=== PATIENT | male | born 1955 | race Caucasian/White ===

== ENCOUNTER 2020-10-18 07:16 | Emergency (ER) | payer SELFPAY ==
[2020-10-18 07:25] VITALS: BP 97/79; PULSE 112; RESP 14; TEMP 36.4; O2SAT 99; BMI 27.3
--- NOTE | 2020-10-18 07:39 | XR_ITS ---
WS: [id number] Exam: XR KUB portable [id number] Date/Time of Exam: 10/18/2020 7:55 AM Reason For Exam: n/v No bowel obstruction or free air. Visualized organ margins are unremarkable. Moderate amount stool in the left colon. Degenerative changes of the L-spine and hips. XR/XR KUB portable [id number] IMPRESSION: 1. No acute abdominal finding.
--- NOTE | 2020-10-18 07:39 | XR_ITS ---
WS: [id number] Exam: XR chest 1V portable [id number] Date/Time of Exam: 10/18/2020 7:55 AM Reason For Exam: n/v No priors. Findings: The lungs are clear and fully expanded. Costophrenic angles are sharp. No infiltrates. Bronchovascula r relief appears normal. Cardiac silhouette is unremarkable. Bony elements are intact. XR/XR chest 1V portable [id number] IMPRESSION: Unremarkable chest radiograph.
--- NOTE | 2020-10-18 07:45 | ECG_ITS ---
[facility] Test Date: 2020-10-18 Pat Name: Eric Mckinney Department: Room: Gender: Male Laboratory Chief: : 1955 Requested By: Rossy Dill Order Number: [id number] Jerald MD: Tiffanie Osuna M.D. Measurements Intervals [place] Rate: 108 P: 28 [place]: 115 QRS: 1 QRSD: 96 T: 33 QT: 323 QTc: 433 Interpretive Statements SINUS TACHYCARDIA WITH SHORT [place] INTERVAL ABNORMAL RHYTHM ECG No previous ECG available for comparison Electronically Signed On 10-18-2020 21:24:41 SCOOP OPERATOR by Tiffanie Osuna M.D. [id number]
[2020-10-18 07:50] LABS: Glucose Point of Care > 600 mg/dL (70-110)
--- NOTE | 2020-10-18 07:51 | W.ED.NAVMDI ---
HPI - Nausea/Vomiting/Diarrhea General: Chief complaint: Nausea/Vomiting/Diarrhea Stated complaint: constipation, nausea, vomiting. Time Seen by Provider: 10/18/20 07:39 Source: patient Mode of arrival: ambulatory Limitations: no limitations History of Present Illness: HPI Narrative: 65-year-old male patient presents to the emergency department with 1 month history of not feeling well. He reports exposed to his brother who had been ill with flulike symptoms earlier this month. He reports became ill several days after exposure to his brother around September 19, 2020. States his brother was tested on several occasions for Covid and was negative. He reports fatigue and symptoms have progressed past 3 to 4 weeks. Reports 4-day onset of vomiting, started with solid food intake. Past 24 hours not able to keep down water due to vomiting. He denies abdominal pain, chest pain, shortness of breath fever. States history of blood sugar readings greater than 600 approximately 2 years ago, states changed his diet, did not follow-up with a primary care provider, states blood sugars improved yet reports he was not able to check his blood sugars at home. He reports symptoms he experienced today are similar when blood sugar reading of 600 approximately 2 years ago. Last bowel movement this morning, was small. He reports constipation past several days. He reports EtOH intake, approximately 6 pack of beer several times weeklY. MD elicited complaint: nausea and vomiting Pertinent past history: anorexia Onset (ago): day(s) (4) Description of vomiting: watery Associated nausea: Yes Associated abdominal pain: No Exacerbating factors: other (EATING) Associated symtoms: Reports fatigue, anorexia, malaise, nausea and weakness; Denies anxiety, bloating, change in vision, chest pain, dizziness, dysuria, headache(s) or palpitations Review of Systems General: Reports: 10 or more systems reviewed and unremarkable except in HPI and below Const: Reports: chills, change in appetite, fatigue and malaise Eyes: Reports: blurry vision; Denies: change in vision, eye discomfort or eye redness ENMT: Reports: other; Denies: throat pain, uvular edema, oral sores, dental pain, disequilibrium, nasal discharge or nasal congestion Card: Denies: chest pain, palpitations, irregular heart rhythm, swelling of feet/ankles, dyspnea on exertion or orthopnea Resp: Denies: dyspnea, productive cough, non-productive cough, wheezing, change in phlegm color or chest congestion GI: Reports: nausea, vomiting and constipation; Denies: hematemesis, dysphagia, diarrhea, bloating, hematochezia or melena : Reports: urinary frequency; Denies: difficulty urinating or dysuria Musc: Reports: back pain (LOWER - RESOLVED 2 WEEKS AGO) and muscle weakness; Denies: neck pain, joint pain, joint warmth, joint stiffness or muscle cramps Skin/Breast: Denies: rash, pruritus, erythema, changing lesions or changes in skin color Neuro: Denies: headache(s), weakness in extremities, difficulty walking, frequent falls, dizziness, behavioral changes or Slurred speech present Psych: Denies: anxiety or depression Endo: Reports: polyuria, polydipsia and tired all the time Varun/Lymph: Denies: easy bruising PFSH ED PFSH: Medical History Hyperglycemia Social History Smoking and tobacco status: never smoked Alcohol intake: current Alcohol intake frequency: holidays/special occasions only Substance/Drug Use: current Substance/Drug use frequency: Special occassions/opportunity only Substance/Drug use type: Marijuana Physical Exam Const: COMMON NORMALS: no acute distress, patient oriented x3, healthy appearing and alert GENERAL APPEARANCE: cooperative, comfortable and well hydrated HENMT: COMMON NORMALS: normocephalic, Normal external nose present and moist oral mucous membranes HEAD & SCALP: normocephalic NOSE: Normal external nose present THROAT: no uvular edema Eye: COMMON NORMALS: Equal, round and reactive pupils present and EOMs intact bilaterally GENERAL EYE: appearance normal, both eyes and all related structures PUPIL: Yes Equal, round and reactive pupils present Neck/C-Spine: COMMON NORMALS: full ROM and no lymphadenopathy GENERAL: Yes normal visual inspection and Yes trachea midline CERVICAL SPINE: Yes cervical ROM normal Lymph: LYMPHATIC: no lymphadenopathy noted Chest: COMMONS NORMALS: normal inspection of the chest Resp: COMMON NORMALS: normal respiratory effort, No retractions, No use of accessory muscles and clear to auscultation bilaterally EFFORT & INSPECTION: Yes able to speak in complete sentences AUSCULTATION: clear to auscultation bilaterally Cardio: COMMON NORMALS: regular rate, regular rhythm, S1 normal heart sound present, S2 normal heart sound present and Peripheral pulses 2+ throughout RATE: regular rate RHYTHM: regular rhythm HEART SOUNDS: S1 normal heart sound present and S2 normal heart sound present PERIPHERAL PULSES: Peripheral pulses 2+ throughout GI: COMMON NORMALS: Normal to inspection, nondistended, normoactive bowel sounds present, Soft to palpation and non-tender INSPECTION: Yes normal to inspection AUSCULTATION: Yes normoactive bowel sounds PALPATION: Yes Soft to palpation, No Firmness to palpation present (GI), No Tenderness to palpation present (GI), No Guarding due to palpation present (GI), No Hernia present and No Abdominal wall crepitus present : COMMON NORMALS: Yes no CVA tenderness BLADDER/KIDNEY EXAM: Yes no CVA tenderness Back/Pelvis: COMMON NORMALS: no CVA tenderness, thoracic and lumbar spine normal to inspection, no thoracic nor lumbar tenderness, thoraco-lumbar ROM normal and straight leg raise negative bilaterally Extremity: COMMON NORMALS: normal to inspection, full ROM, capillary refill normal and no pedal edema GENERAL: Yes normal exam except as noted Neuro: COMMON NORMALS: patient oriented x3 and no focal motor deficits SENSORIUM/ORIENTATION: Yes alert Psych: COMMON NORMALS: mental status grossly normal, Normal thought process present and cooperative ACTIVITY/MOTOR BEHAVIOR: Yes appropriate eye contact THOUGHT PROCESS: Normal thought process present Skin: COMMON NORMALS: no rashes or lesions noted and turgor normal GENERAL SKIN EXAM: no rashes or lesions noted, elasticity normal and turgor normal LESIONS: no lesions RASHES: no rashes TRAUMA: no lacerations or abrasions OTHER: BLE FOOT EXAM WITHOUT LESIONS OR WOUNDS Course ED course: Transfer of care to Dr Daniel due to need for insulin drip and ICU admission due to DKA. Vital Signs: Vital signs: Vital Signs Temperature 97.6 F 10/18/20 07:25 Pulse Rate 112 H 10/18/20 07:25 Respiratory Rate 14 10/18/20 07:25 Blood Pressure 97/79 10/18/20 07:25 Pulse Oximetry 99 10/18/20 07:25 MDM - Nausea/Vomiting/Diarrhea Lab Data: Labs: Lab Results 10/18/20 10/18/20 10/18/20 Range/Units 07:45 07:45 07:45 WBC 18.3 H (4.0-10.0) 10^3/ uL RBC 4.05 L (4.1-5.3) 10^6/u L Hgb 11.7 (11.7-16.6) g/dL Hct 33.9 L (42.0-52.0) % MCV 83.7 (80-94) fL MCH 28.9 (28.0-34.0) pg MCHC 34.5 (30.0-36.0) g/dL RDW 11.9 L (12.1-15.1) % Plt Count 270 (130-400) 10^3/c mm MPV 12.1 H (7.4-10.4) fL Neut % (Auto) 90.4 % Lymph % (Auto) 5.1 % [place] % (Auto) 2.9 % Eos % (Auto) 0.3 % Baso % (Auto) 0.2 % Neut # (Auto) 16.52 H (1.8-7.7) 10^3/u L Lymph # (Auto) 0.9 (0.8-4.8) 10^3/u L [place] # (Auto) 0.5 (0.2-0.9) 10^3/u L Eos # (Auto) 0.1 (0.0-0.8) 10^3/u L Baso # (Auto) 0.0 (0.0-0.1) 10^3/u L Nucleated RBC % (a uto) 0 % Nucleated RBCs # 0.0 /100WBC Specimen Type Sample Site ABG pH (7.35-7.45) ABG pCO2 (35-45) mmHg ABG pO2 (80.0-100.0) mmH g ABG HCO3 (22-26) mmol/L ABG O2 Saturation ABG Base Excess (-2.0-2.0) mmol/ L Luis Enrique Test A-a O2 Gradient (5-10) mmHg Hematocrit (42-52) % Hgb O2 Saturation (95-100) % Carboxyhemoglobin (0.4-20.1) %THgb Methemoglobin (0.4-1.5) % Total Hemoglobin (14-18) g/dL Ionized Calcium (1.1-1.4) mmol/L O2 Delivery Device FiO2 % Playground Equipment Erector ID Sodium 126 L (136-145) mmol/L Potassium 5.2 H (3.5-5.1) mmol/L Chloride 83 L (98-107) mmol/L Carbon Dioxide 23 (22-29) mmol/L Anion Gap 25.2 H (5-19) BUN 36 H (8-23) mg/dL Creatinine 2.1 H (0.7-1.2) mg/dL GFR Calculation 32.1 L (90-130) mL/min Glucose 657 H* (65-115) mg/dL POC Glucose (70-110) mg/dL Calculated Osmolal ity 301 H (285-295) mOsm/k g Lactate (0.5-2.2) mmol/L Calcium 9.2 (8.5-10.5) mg/dL Total Bilirubin 0.3 (0.15-1.2) mg/dL AST 7 (0-40) U/L ALT 9 (0-41) U/L Alkaline Phosphata se 160 H (40-130) IU/L Troponin T Baselin e (0-15) ng/L Total Protein 6.5 L (6.6-8.7) g/dL Albumin 3.3 L (3.5-5.2) g/dL Globulin 3.2 (1.3-4.6) g/dL Lipase 46 (13-60) U/L Urine Color (Yellow) Urine Appearance (CLEAR) Urine pH (5-7) Ur Specific Gravit y (1.005-1.030) Urine Protein (Negative) Urine Glucose (UA) (Normal) Urine Ketones (Negative) Urine Blood (Negative) Urine Nitrate (Negative) Urine Bilirubin (Negative) Urine Urobilinogen (Negative) mg/dL Ur Leukocyte Heidy ase (Negative) Urine RBC (0-2) /hpf Urine WBC (0-5) /hpf Ur Squamous Epith Cells (0-5) /hpf Amorphous Sediment Urine Bacteria (NONE) /hpf Serum Ketones Positive H (Negative) 10/18/20 10/18/20 10/18/20 Range/Units 07:45 07:45 07:47 WBC (4.0-10.0) 10^3/ uL RBC (4.1-5.3) 10^6/u L Hgb (11.7-16.6) g/dL Hct (42.0-52.0) % MCV (80-94) fL MCH (28.0-34.0) pg MCHC (30.0-36.0) g/dL RDW (12.1-15.1) % Plt Count (130-400) 10^3/c mm MPV (7.4-10.4) fL Neut % (Auto) % Lymph % (Auto) % [place] % (Auto) % Eos % (Auto) % Baso % (Auto) % Neut # (Auto) (1.8-7.7) 10^3/u L Lymph # (Auto) (0.8-4.8) 10^3/u L [place] # (Auto) (0.2-0.9) 10^3/u L Eos # (Auto) (0.0-0.8) 10^3/u L Baso # (Auto) (0.0-0.1) 10^3/u L Nucleated RBC % (a uto) % Nucleated RBCs # /100WBC Specimen Type Sample Site ABG pH (7.35-7.45) ABG pCO2 (35-45) mmHg ABG pO2 (80.0-100.0) mmH g ABG HCO3 (22-26) mmol/L ABG O2 Saturation ABG Base Excess (-2.0-2.0) mmol/ L Luis Enrique Test A-a O2 Gradient (5-10) mmHg Hematocrit (42-52) % Hgb O2 Saturation (95-100) % Carboxyhemoglobin (0.4-20.1) %THgb Methemoglobin (0.4-1.5) % Total Hemoglobin (14-18) g/dL Ionized Calcium (1.1-1.4) mmol/L O2 Delivery Device FiO2 % Playground Equipment Erector ID Sodium (136-145) mmol/L Potassium (3.5-5.1) mmol/L Chloride (98-107) mmol/L Carbon Dioxide (22-29) mmol/L Anion Gap (5-19) BUN (8-23) mg/dL Creatinine (0.7-1.2) mg/dL GFR Calculation (90-130) mL/min Glucose (65-115) mg/dL POC Glucose > 600 H* (70-110) mg/dL Calculated Osmolal ity (285-295) mOsm/k g Lactate 2.7 H (0.5-2.2) mmol/L Calcium (8.5-10.5) mg/dL Total Bilirubin (0.15-1.2) mg/dL AST (0-40) U/L ALT (0-41) U/L Alkaline Phosphata se (40-130) IU/L Troponin T Baselin e 29 H (0-15) ng/L Total Protein (6.6-8.7) g/dL Albumin (3.5-5.2) g/dL Globulin (1.3-4.6) g/dL Lipase (13-60) U/L Urine Color (Yellow) Urine Appearance (CLEAR) Urine pH (5-7) Ur Specific Gravit y (1.005-1.030) Urine Protein (Negative) Urine Glucose (UA) (Normal) Urine Ketones (Negative) Urine Blood (Negative) Urine Nitrate (Negative) Urine Bilirubin (Negative) Urine Urobilinogen (Negative) mg/dL Ur Leukocyte Heidy ase (Negative) Urine RBC (0-2) /hpf Urine WBC (0-5) /hpf Ur Squamous Epith Cells (0-5) /hpf Amorphous Sediment Urine Bacteria (NONE) /hpf Serum Ketones (Negative) 10/18/20 10/18/20 10/18/20 Range/Units 08:38 08:49 09:59 WBC (4.0-10.0) 10^3/ uL RBC (4.1-5.3) 10^6/u L Hgb (11.7-16.6) g/dL Hct (42.0-52.0) % MCV (80-94) fL MCH (28.0-34.0) pg MCHC (30.0-36.0) g/dL RDW (12.1-15.1) % Plt Count (130-400) 10^3/c mm MPV (7.4-10.4) fL Neut % (Auto) % Lymph % (Auto) % [place] % (Auto) % Eos % (Auto) % Baso % (Auto) % Neut # (Auto) (1.8-7.7) 10^3/u L Lymph # (Auto) (0.8-4.8) 10^3/u L [place] # (Auto) (0.2-0.9) 10^3/u L Eos # (Auto) (0.0-0.8) 10^3/u L Baso # (Auto) (0.0-0.1) 10^3/u L Nucleated RBC % (a uto) % Nucleated RBCs # /100WBC Specimen Type Arterial Sample Site Radial, right ABG pH 7.49 H (7.35-7.45) ABG pCO2 29.2 L (35-45) mmHg ABG pO2 93.0 (80.0-100.0) mmH g ABG HCO3 22.3 (22-26) mmol/L ABG O2 Saturation 98.5 ABG Base Excess -0.4 (-2.0-2.0) mmol/ L Luis Enrique Test Pos A-a O2 Gradient 2.5 L (5-10) mmHg Hematocrit 32.2 L (42-52) % Hgb O2 Saturation 96.6 (95-100) % Carboxyhemoglobin 0.9 (0.4-20.1) %THgb Methemoglobin 1.0 (0.4-1.5) % Total Hemoglobin 10.5 L (14-18) g/dL Ionized Calcium 1.2 (1.1-1.4) mmol/L O2 Delivery Device Room air FiO2 21.0 % Playground Equipment Erector ID [place] Sodium 130.0 L (136-145) mmol/L Potassium 3.9 (3.5-5.1) mmol/L Chloride (98-107) mmol/L Carbon Dioxide (22-29) mmol/L Anion Gap (5-19) BUN (8-23) mg/dL Creatinine (0.7-1.2) mg/dL GFR Calculation (90-130) mL/min Glucose 580.0 H (65-115) mg/dL POC Glucose 535 H* (70-110) mg/dL Calculated Osmolal ity (285-295) mOsm/k g Lactate (0.5-2.2) mmol/L Calcium (8.5-10.5) mg/dL Total Bilirubin (0.15-1.2) mg/dL AST (0-40) U/L ALT (0-41) U/L Alkaline Phosphata se (40-130) IU/L Troponin T Baselin e (0-15) ng/L Total Protein (6.6-8.7) g/dL Albumin (3.5-5.2) g/dL Globulin (1.3-4.6) g/dL Lipase (13-60) U/L Urine Color Straw (Yellow) Urine Appearance Sl hazy (CLEAR) Urine pH 5 (5-7) Ur Specific Gravit y 1.005 (1.005-1.030) Urine Protein Neg (Negative) Urine Glucose (UA) 4+ H (Normal) Urine Ketones 1+ H (Negative) Urine Blood 3+ H (Negative) Urine Nitrate Negative (Negative) Urine Bilirubin Neg (Negative) Urine Urobilinogen Norm (Negative) mg/dL Ur Leukocyte Heidy ase 2+ H (Negative) Urine RBC 0-4 H (0-2) /hpf Urine WBC >100 H (0-5) /hpf Ur Squamous Epith Cells 0-4 H (0-5) /hpf Amorphous Sediment Not Reportable Urine Bacteria 1+ H (NONE) /hpf Serum Ketones (Negative) Coding Level of Care Code ED Associate Professor Of Automation for Chg Fwd Exam Comprehensive
[2020-10-18 07:53] LABS: Basophils % 0.2 %; Eosinophils # 0.1 10^3/uL (0.0-0.8); Eosinophils % 0.3 %; Hematocrit 33.9 % (42.0-52.0); Hemoglobin 11.7 g/dL (11.7-16.6); Lymphocytes # 0.9 10^3/uL (0.8-4.8); Lymphocytes % 5.1 %; Mean Corpuscular HGB Conc 34.5 g/dL (30.0-36.0); Mean Corpuscular Hemoglobin 28.9 pg (28.0-34.0); Mean Corpuscular Volume 83.7 fL (80-94); Mean Platelet Volume 12.1 fL (7.4-10.4); Monocytes # 0.5 10^3/uL (0.2-0.9); Monocytes % 2.9 %; Neutrophils # 16.52 10^3/uL (1.8-7.7); Neutrophils % 90.4 %; Nucleated Red Blood Cells % 0 %; Platelet Count 270 10^3/cmm (130-400); Red Blood Count 4.05 10^6/uL (4.1-5.3); Red Cell Distribution Width 11.9 % (12.1-15.1); White Blood Count 18.3 10^3/uL (4.0-10.0)
[2020-10-18 08:05] LABS: Ketone (Acetest) Serum Positive (Negative)
[2020-10-18 08:14] LABS: Lactate (Lactic Acid level) 2.7 mmol/L (0.5-2.2)
[2020-10-18 08:15] LABS: Alanine Aminotransferase 9 U/L (0-41); Albumin Level 3.3 g/dL (3.5-5.2); Alkaline Phosphatase 160 IU/L (40-130); Anion Gap 25.2 (5-19); Aspartate Amino Transferase 7 U/L (0-40); Blood Urea Nitrogen 36 mg/dL (8-23); Calcium 9.2 mg/dL (8.5-10.5); Carbon Dioxide 23 mmol/L (22-29); Chloride 83 mmol/L (98-107); Creatinine Clr Calc Pharmacy 37.5318; Globulin 3.2 g/dL (1.3-4.6); Glomerular Filtration Rate 32.1 mL/min (90-130); Lipase 46 U/L (13-60); Osmolality Calculated 301 mOsm/kg (285-295); Potassium 5.2 mmol/L (3.5-5.1); Sodium 126 mmol/L (136-145); Total Bilirubin 0.3 mg/dL (0.15-1.2); Total Protein 6.5 g/dL (6.6-8.7)
[2020-10-18 08:16] LABS: Glucose 657 mg/dL (65-115)
[2020-10-18 08:17] LABS: Troponin(5th) Baseline 29 ng/L (0-15)
[2020-10-18] MEDS: insulin regular-human 100 units/1 mL 10 UNIT IVP (08:17)
[2020-10-18] MEDS: sodium chloride 0.9% 1,000 ML 999 ML IV ×2 (08:20→10:18)
[2020-10-18 08:51] LABS: ABG PCO2 29.2 mmHg (35-45); ABG PH Result 7.49 (7.35-7.45); Alveolar-Arterial Oxygen Gradi 2.5 mmHg (5-10); Arterial Blood Gas Hematocrit 32.2 % (42-52); Base Excess ABG -0.4 mmol/L (-2.0-2.0); Blood Gas Allen Test Pos; Blood Gas Operator Identificat MONRO; Blood Gas Sample Site Radial, right; Blood Gas Sample Type Arterial; Carboxyhemoglobin 0.9 %THgb (0.4-20.1); HCO3 ABG 22.3 mmol/L (22-26); HGB O2 Sat 96.6 % (95-100); Ionized Calcium Level - ABG 1.2 mmol/L (1.1-1.4); Oxygen Device ROOM AIR; Oxygen Saturation ABG 98.5; Potassium Level - ABG 3.9 mmol/L (3.5-5.0); Total Hemoglobin 10.5 g/dL (14-18)
[2020-10-18 09:09] LABS: Glucose Urine UA 4+ (Normal); Protein Urine Neg (Negative); Specific Gravity, Urine 1.005 (1.005-1.030); Urine Appearance SL Hazy (CLEAR); Urine Color Straw (Yellow); pH Urine 5 (5-7)
[2020-10-18 09:10] LABS: Add Urine Culture? Yes; Add Urine Microscopic? YES; Bacteria Urine 1+ /hpf; Bilirubin Urine Neg (Negative); Blood Urine 3+ (Negative); Ketones Urine 1+ (Negative); Leukocyte Esterase Urine 2+ (Negative); Nitrate Urine Negative (Negative); RBC Urine 0-4 /hpf (0-2); Squamous Epithelial Cell Urine 0-4 /hpf (0-5); Urobilinogen Urine Norm (Negative); WBC Urine >100 /hpf (0-5)
--- NOTE | 2020-10-18 09:50 | ECG_ITS ---
[facility] Test Date: 2020-10-18 Pat Name: Eric Mckinney Department: Room: Gender: Male Education General Manager: : 1955 Requested By: Rossy Dill Order Number: [id number] Jerald MD: Tiffanie Osuna M.D. Measurements Intervals [place] Rate: 99 P: 39 [place]: 117 QRS: 2 QRSD: 100 T: 37 QT: 334 QTc: 430 Interpretive Statements SINUS RHYTHM WITH SHORT [place] INTERVAL POSSIBLE RIGHT VENTRICULAR CONDUCTION DELAY [RSR (QR) IN V1/V2] No previous ECG available for comparison Electronically Signed On 10-18-2020 16:54:44 CLOTH BRUSHING AND SUEDING SUPERVISOR by Tiffanie Osuna M.D. [email or web address]
[2020-10-18 10:05] LABS: Glucose Point of Care 535 mg/dL (70-110)
[2020-10-18 10:58] LABS: SARS Covid-2 Antigen Negative (Negative)
[2020-10-18] MEDS: cefTRIAXone 2,000 MG in sodium chloride 0.9% (plus) 50 ML 100 MG IV (11:05)
[2020-10-18] MEDS: insulin regular-human 250 UNIT in sodium chloride 0.9% 250 ML IV (11:16)
[2020-10-18 11:45] LABS: Troponin 5 2HR 23.95 ng/L (0-15)
[2020-10-18 11:48] LABS: Troponin 5 2HR Delta -5.05 ABS# (0-10)
[2020-10-18 13:12] VITALS: BP 112/74; PULSE 96; RESP 20; TEMP 36.9; O2SAT 92
[2020-10-18 13:25] LABS: Glucose Point of Care 422 mg/dL (70-110)
[2020-10-18 13:43] VITALS: BP 107/71; PULSE 98; RESP 18; O2SAT 98
== END 2020-10-18 14:30 | disposition short-term general hospital (02) ==
PROVIDERS: Nurse Practitioner Family; Emergency Provider Family Medicine
DX: R11.2 Nausea with vomiting, unspecified (principal)
CPT/HCPCS: 12345; 36415; 36416; 36600; 71045; 74018; 80051; 80053; 81001; 82009; 82330; 82805; 82962; 83605; 83690; 84484; 85025; 87040; 87077; 87086; 87186; 87426; 93005; 96365; 96366; 96367; 99283; 99285; J0696; J1815; J7030; J7050

== ENCOUNTER 2022-10-23 11:26 | Outpatient (CLI) | payer MEDICARE, SELFPAY ==
--- NOTE | 2022-10-23 | US_ITS ---
WS: [id number] Bilateral renal ultrasound, 10/23/2022 Clinical Data: Stageg 3b chronic kidney disease Comparison: None. Findings: The right kidney measures 10.88 cm x 4.41 cm x 5.68 cm and the left kidney is 11.95 cm x 5.42 cm x 5. 65 cm. There are no cysts, masses or hydronephrosis. The renal borders show lobulation. The renal cor tical margin is normal. No renal calculi are seen. The abdominal aorta and inferior vena cava show no vascular abnormalities. The bladder was scanned and was not remarkable. US/US renal BI* [id number] Impression: Negative bilateral renal ultrasound.
== END 2022-10-23 11:27 | disposition home or self-care (01) ==
LOC: RAD 11:27
PROVIDERS: PCP Physician Assistant; Visit Provider Internal Medicine Nephrology
DX: N18.32 Chronic kidney disease, stage 3b (principal)
CPT/HCPCS: 76770